=== PATIENT | male | born 1930 | race Hispanic/Latino ===

== ENCOUNTER 2018-10-03 05:52 | Day surgery (SDC) | payer MEDICARE ==
[2018-09-28 11:06] VITALS: BP 174/75
[2018-09-28 11:15] LABS: BASOPHILS % (AUTO) 1.8 % (0.0-5.0); EOSINOPHILS % (AUTO) 7.8 % (0.0-8.0); LYMPHOCYTES % (AUTO) 25.7 % (21.0-51.0); MEAN CORPUSCULAR HEMOGLOBIN 32.6 pg (27.0-33.0); MEAN CORPUSCULAR HGB CONC 32.7 g/dL (32.0-36.0); MEAN CORPUSCULAR VOLUME 99.6 fL (79-99); MONOCYTES % (AUTO) 12.6 % (3.0-13.0); NEUTROPHILS % (AUTO) 52.1 % (40.0-77.0); PLATELET COUNT (AUTO) 54 K/uL (130-400); RED BLOOD CELL COUNT(AUTO) 2.91 MIL/uL (4.50-6.20); RED CELL DISTRIBUTION WIDTH 15.9 % (11.0-15.5); WHITE BLOOD COUNT (AUTO) 4.1 K/uL (4.8-10.8)
[2018-09-28 11:16] LABS: CREATININE 4.6 mg/dL (0.5-1.5); POTASSIUM 4.9 mmol/L (3.5-5.1)
[2018-09-28 11:39] LABS: INR 1.11 (0.85-1.15); PARTIAL THROMBOPLASTIN TIME 29.4 SEC (26.3-35.5); PROTHROMBIN TIME 11.6 SEC (9.6-11.6)
--- NOTE | 2018-10-02 17:11 | NUR ---
labs abnormal labs reported to Dr. Doss. as per Georgie DR. doss said ok to proceed with procedure. no further orders given
[2018-10-03] VITALS (9 sets, daily range): BP systolic 168–175; BP diastolic 57–68
[~2018-10-03] VITALS: Ht 162.6 cm; Wt 56.4 kg
[~2018-10-03 05:52] MED LIST: AMLO5TAB9 PO; APIX2.5T PO; ATOR10 PO; CARB1TAB20 PO; CARB1TAB42 PO; METO-408 PO; TAMS0.4C32 PO
--- NOTE | 2018-10-03 05:55 | NUR ---
patient arrived PATIENT ARRIVED ON UNIT ACCOMPANIED BY DAUGHTER, JENNIFER. PATIENT AAOX3, RESPIRATIONS UNLABORED, NO C/O PAIN AT THIS TIME. PROCEDURE VERIFIED WITH PATIENT AND CONFIRMED, INSTRUCTED ON HOSPITAL ROUTINE AND ALL QUESTIONS/CONCERNS ANSWERED.
--- NOTE | 2018-10-03 07:20 | NUR ---
PATIENT TRANSFERRED PATIENT TAKEN TO [facility] VIA BED BY SARBJIT DICK RN
[2018-10-03] MEDS ORDERED: CEFAZOLIN SODIUM 1 GM VIAL ONE (07:22)
[2018-10-03] MEDS ORDERED: MEPERIDINE-PF 25 MG/ML SYG ONE ×2 (07:22→08:21)
[2018-10-03] MEDS ORDERED: MIDAZOLAM HCL 1 MG/ML 2ML VIAL ONE ×2 (07:22→08:21)
[2018-10-03] MEDS ORDERED: BUPIVACAINE/PF 0.25% 50ML VIAL IJ ONE (07:23)
[2018-10-03] MEDS ORDERED: LIDOCAINE HCL 1% MDV 50ML VIAL ONE (07:23)
[2018-10-03] MEDS: SODIUM CHLORIDE 0.9% 1000ML 1,000 ML IV SCH ×2 (07:24→09:17)
[2018-10-03] MEDS ORDERED: CEFAZOLIN SODIUM 1 GM VIAL IVP ONE (08:00)
--- NOTE | 2018-10-03 09:20 | NUR ---
POST-PROCEDURE SITE ASSESSMENT LEFT UPPER CHEST WITH PRESSURE DRESSING IN PLACE. DRESSING DRY AND INTACT. NO S/S OF DRAINAGE/BLEEDING NOTED. PATIENT DENIES ANY PAIN AT THIS TIME.
--- NOTE | 2018-10-03 09:20 | NUR ---
PATIENT RETURNED PATIENT BROUGHT BACK FROM [facility] VIA BED BY SARBJIT DICK RN AND MARCELO HYDE. PATIENT DROWSY, ORIENTED X3. PATIENT DENIES ANY PAIN AT THIS TIME. RESPIRATIONS UNLABORED. PRESSURE DRESSING TO LEFT UPPER CHEST IS DRY AND INTACT. DAUGHTER AT BEDSIDE. SIDERAILS UP X2, BED IN LOWEST POSITION AND CALL [facility] WITHIN REACH,
--- NOTE | 2018-10-03 12:05 | NUR ---
POST PROCEDURE SITE DRESSING TO LEFT UPPER CHEST IS DRY AND INTACT, NO DRAINAGE NOTED. AREA IS SOFT TO TOUCH AND NONTENDER.
--- NOTE | 2018-10-03 12:50 | NUR ---
PRESSURE DRESSING PRESSURE DRESSING REMOVED FROM LEFT CHEST WALL. MINIMAL BLOOD NOTED ON OP SITE GAUZE. COVERED WITH OPSITE CLEAR TAPE. NO SWELLING NOTED. NON TENDER AND SOFT UPON PALPATION. PATIENT DENIES ANY PAIN AT THIS TIME.
--- NOTE | 2018-10-03 13:05 | NUR ---
POST PROCEDURE SITE DRESSING TO LEFT UPPER CHEST IS DRY AND INTACT, NO DRAINAGE NOTED. AREA IS SOFT TO TOUCH AND NONTENDER.
--- NOTE | 2018-10-03 13:20 | NUR ---
DISCHARGED DISCHARGE INSTRUCTIONS GIVEN TO PATIENT'S DAUGHTER (JENNIFER) AND PATIENT. PROVIDED FOLLOW UP APPOINTMENT AND INSTRUCTED ON DAILY DRESSING CHANGES. EXPLAINED TO KEEP SITE DRY X 5 DAYS AND COVER WITH CLEAN GAUZE AND OP SITE TAPE DAILY. PROVIDED PATIENT WITH GAUZE AND TAPE. INSTRUCTED TO RESUME ELIQUIS ON TUESDAY. PATIENT AND PATIENT'S DAUGHTER VERBALIZED UNDERSTANDING. ALL QUESTIONS/CONCERNS ADDRESSED BY NURSE.
== END 2018-10-03 13:20 ==
LOC: DAH 05:52
PROVIDERS: ATTEND Internal Medicine Cardiovascular Disease
DX: Z45.010 Encounter for checking and testing of cardiac pacemaker pulse generator [battery] (principal); I48.0 Paroxysmal atrial fibrillation; N40.0 Benign prostatic hyperplasia without lower urinary tract symptoms; I12.0 Hypertensive chronic kidney disease with stage 5 chronic kidney disease or end stage renal disease; N18.6 End stage renal disease; Z79.01 Long term (current) use of anticoagulants; Z79.899 Other long term (current) drug therapy; Z99.2 Dependence on renal dialysis; Z98.890 Other specified postprocedural states; Z82.49 Family history of ischemic heart disease and other diseases of the circulatory system
CPT/HCPCS: 33228; 36415; 80048; 85025; 85610; 85730; A4606; A6206; C1785; J0690; J2175 ×2; J2250 ×2; J3490 ×2; J7030; 99156; 99157